=== PATIENT | female | born 1995 | race Asian ===

== ENCOUNTER 2016-10-30 05:00 | Emergency (ER) | payer BC, OTHER ==
[~2016-10-30] VITALS: Ht 162.6 cm; Wt 46.0 kg
[2016-10-30 05:04] VITALS: BP 116/66; PULSE 97; TEMP 36.6; O2SAT 97; Ht 162.6 cm; Wt 46.0 kg
[2016-10-30] MEDS ORDERED: SULFAMETHOXAZOLE/TRIMETHOPRIM DS 800/160MG TAB PO STA (05:17)
[2016-10-30] MEDS ORDERED: PHENAZOPYRIDINE HCL 200 MG TAB PO STA (05:17)
[2016-10-30] MEDS ORDERED: SULF800T23 PO (05:24)
[2016-10-30] MEDS ORDERED: PHEN-876 PO (05:24)
--- NOTE | 2016-10-30 05:25 | EMERGENCY ROOM VISIT NOTE ---
ED Visit Note First contact with patient: 05:06 Chief Complaint: UTI, Urinary Symptoms History of Present Illness: Patient is a 21-year-old female who presents to the emergency Department this morning for evaluation of her urinary symptoms. She reports that 3 hours prior to arrival she was awoken with suprapubic pain and burning with urination. She has had urinary frequency as well. She did take ibuprofen which did not provide much relief. She reports a history of about urinary tract infection the past. She denies a vaginal discharge or drainage. She denies any fevers or chills. She was nauseated secondary to the pain. The patient rates her current discomfort as 6/10. She denies any fevers, chills, upper abdominal pain, vomiting, hematemesis, hematochezia, or melena. She denies any tri hematuria. Medications: No current medications. Allergies: No known allergies. PMH: No pertinent past medical history. SHx: Patient is a 21 year old female [employer] student who lives with roommates. ROS: All pertinent positive and negative review of systems are appropriately documented in the History of Present Illness. Physical Exam: VITAL SIGNS - Vital signs and nursing notes were reviewed. GENERAL - 21-year-old female appearing her stated age who is in no acute distress. Communicates well with provider and answers questions appropriately. ABDOMEN - Abdominal contour flat and without pulsations or visible masses. BS normoactive all four quadrants. Mild tenderness to palpation appreciated in the suprapubic area. No guarding. No Rebound Tenderness. Negative Rovsing's. Negative Paiz's. No palpable masses, hepatosplenomegaly, or ascites noted. PSYCH - A&Ox3 and cooperates fully with examiner. Pt is very pleasant and interacts well with examiner. ED Course: Patient was seen and evaluated by myself. Urine dip and urinalysis were ordered. Urine dip was consistent with urinary tract infection as was the patient's symptoms. She has no fever. She has no flank pain concerning for worsening infection with complication. The patient was provided initial dose of Bactrim and Pyridium in the emergency department. She will replace a short course of the same. She'll follow-up with [facility] services from today's visit or return for any changing or worsening symptoms. Patient discharged home afebrile and in good condition. In the evaluation and treatment of this patient, the following differential diagnoses were considered: Kidney Stone, STI, Bladder Cancer, Amongst Others. Impression: Acute UTI, Dysuria Discharge Instructions: You have been treated in the Emergency Department for a Urinary Tract Infection (UTI). You have been prescribed Bactrim to be taken as prescribed. This is an antibiotic. All antibiotics have the potential to cause diarrhea. Stop this medication and contact a medical provider if you were to develop any significant adverse side effects including: wheezing, shortness of breath, passing out, vomiting, or a diffuse rash. Always take antibiotics as directed and COMPLETE the ENTIRE course regardless of the improvement of your symptoms. You have been prescribed Pyridium to be taken as prescribed. This medicine will help with the urinary symptoms that you have been experiencing. Be aware that Pyridium may turn your urine a red-orange or brown color. This effect is harmless. Drink plenty of water and stay well hydrated. As with any trip to the Emergency Department, you should follow-up with your Primary Care Provider from today's visit. Return to the emergency department if your symptoms persist despite treatment plan outlined above or if the following symptoms occur: increased fevers, chills , low back pain, nausea/vomiting, or blood in your urine. Current/Historical Medications Scheduled Phenazopyridine HCl (Pyridium), 200 MG PO TID Sulfa/Trimethoprim (Bactrim Ds 800MG/160MG), 1 TAB PO BID Allergies Coded Allergies: No Known Allergies (Unverified , 02/22/16) Vital Signs Date Time Temp Pulse Resp B/P Pulse Ox O2 Delivery O2 Flow Rate FiO2 10/30/16 05:04 36.6 97 18 116/66 97 Room Air Laboratory Results Test 10/30/16 05:10 Urine Color YELLOW Urine Appearance TURBID (CLEAR) Urine pH 5.5 (4.5-7.5) Urine Specific [place] 1.021 (1.000-1.030) Urine Protein 1+ (NEG) Urine Glucose (UA) NEG (NEG) Urine Ketones NEG (NEG) Urine Occult Blood 3+ (NEG) Urine Nitrite POS (NEG) Urine Bilirubin NEG (NEG) Urine Urobilinogen NEG (NEG) Urine Leukocyte Esterase LARGE (NEG) Urine WBC (Auto) >30 /hpf (0-5) Urine RBC (Auto) >30 /hpf (0-4) Urine Hyaline Casts (Auto) 5-10 /lpf (0-5) Urine Epithelial Cells (Auto) >30 /lpf (0-5) Urine Bacteria (Auto) 4+ (NEG) Urine Test NEG (NEG) Medications Administered Medications (Trade) Dose Ordered Sig/Shantel Route Start Time Stop Time Status Last Admin Dose Admin Trimethoprim/ Sulfamethoxazole (Sulfameth/ Trimeth Ds 800/ 160MG Home Pack) 1 homepack UD ONCE PO 10/30/16 05:30 10/30/16 05:31 DC 10/30/16 05:23 1 HOMEPACK Trimethoprim/ Sulfamethoxazole (Septra Ds 800/ 160MG Tab) 1 tab NOW STAT PO 10/30/16 05:17 10/30/16 05:19 DC 10/30/16 05:22 1 TAB Phenazopyridine HCl (Pyridium Tab) 200 mg NOW STAT PO 10/30/16 05:17 10/30/16 05:19 DC 10/30/16 05:23 200 MG Phenazopyridine HCl (Phenazopyridine HCl 200MG Home Pack) 1 homepack UD ONCE PO 10/30/16 05:30 10/30/16 05:31 DC 10/30/16 05:23 1 HOMEPACK Departure Information Impression Primary Impression: Urinary tract infection Qualified Codes: N30.00 - Acute cystitis without hematuria Additional Impression: Dysuria Dispostion Home / Self-Care Condition GOOD Prescriptions Phenazopyridine HCl (Pyridium) 200 Mg Tab 200 MG PO TID for 3 Days, #9 TAB Prov: Waqar Wileks PA-C 10/30/16 Sulfa/Trimethoprim (Bactrim Ds 800MG/160MG) Tab 1 TAB PO BID for 5 Days, #10 TAB Prov: Waqar Wilkes PA-C 10/30/16 Referrals No Doctor, Assigned (PCP) Patient Instructions ED UTI Cystitis Female, My [facility] Additional Instructions You have been treated in the Emergency Department for a Urinary Tract Infection (UTI). You have been prescribed Bactrim to be taken as prescribed. This is an antibiotic. All antibiotics have the potential to cause diarrhea. Stop this medication and contact a medical provider if you were to develop any significant adverse side effects including: wheezing, shortness of breath, passing out, vomiting, or a diffuse rash. Always take antibiotics as directed and COMPLETE the ENTIRE course regardless of the improvement of your symptoms. You have been prescribed Pyridium to be taken as prescribed. This medicine will help with the urinary symptoms that you have been experiencing. Be aware that Pyridium may turn your urine a red-orange or brown color. This effect is harmless. Drink plenty of water and stay well hydrated. As with any trip to the Emergency Department, you should follow-up with your Primary Care Provider from today's visit. Return to the emergency department if your symptoms persist despite treatment plan outlined above or if the following symptoms occur: increased fevers, chills , low back pain, nausea/vomiting, or blood in your urine.
[2016-10-30] MEDS ORDERED: SEPTRA DS HOME PACK 1 EA VIAL PO ONE (05:30)
[2016-10-30] MEDS ORDERED: PHENAZOPYRIDINE HOME PACK 200 MG VIAL PO ONE (05:30)
[2016-10-30 05:31] LABS: URINE APPEARANCE TURBID (CLEAR); URINE BILIRUBIN NEG (NEG); URINE COLOR YELLOW; URINE EPITHELIAL CELL AUTO >30 /lpf (0-5); URINE NITRITE POS (NEG); URINE PH 5.5 (4.5-7.5); URINE SPECIFIC GRAVITY 1.021 (1.000-1.030); UROBILINOGEN NEG (NEG); ZZUR CULT IF INDIC CLEAN CATCH YES
[2016-10-30 05:34] LABS: MANUAL MICROSCOPIC REQUIRED? NO; REVIEW REQ? NO
--- NOTE | 2016-11-01 12:30 | Pharmacy Progress Note ---
ED Pharmacist Culture FollowUp Date of Service: Nov 01, 2016. Patient was sent home with a prescription for Bactrim, which should cover the E. coli growing from the patient's urine culture.
== END 2016-10-30 05:34 | disposition home or self-care (01) ==
LOC: C.EDB 05:01 → C.EDA 05:34
DX: N39.0 Urinary tract infection, site not specified (principal)

== ENCOUNTER 2017-01-24 01:58 | Emergency (ER) | payer BC ==
[~2017-01-24] VITALS: Ht 162.6 cm; Wt 47.6 kg
[2017-01-24 02:00] VITALS: TEMP 36.9; Ht 162.6 cm; Wt 47.6 kg
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
[2017-01-24 03:35] VITALS: BP 128/86; PULSE 89; O2SAT 99
--- NOTE | 2017-01-24 07:18 | DIAGNOSTIC IMAGING REPORT ---
CT OF THE HEAD WITHOUT CONTRAST CLINICAL HISTORY: Head injury with loss of consciousness. COMPARISON STUDY: No previous studies for comparison. CT DOSE: 537.48 mGy.cm TECHNIQUE: Helical axial images of the head were obtained without IV contrast. Automated exposure control was utilized for the study. FINDINGS: No acute intracranial hemorrhage, midline shift or mass effect is present. Ventricular system is normal. Basilar cisterns are patent. There are no extra-axial collections. Otoole-white differentiation is maintained. There is no calvarial fracture. Visualized portions of the sinuses and mastoid air cells are clear. IMPRESSION: 1. No acute intracranial findings. 2. No calvarial fracture. Electronically signed by: Antwan Vale M.D. 01/24/2017 7:16 AM Dictated Date/Time: 01/24/2017 7:15 AM
== END 2017-01-24 03:35 | disposition home or self-care (01) ==
LOC: C.EDB 01:59
DX: S06.0X1A Concussion with loss of consciousness of 30 minutes or less, initial encounter (principal); W04.XXXA Fall while being carried or supported by other persons, initial encounter; Z87.440 Personal history of urinary (tract) infections

== ENCOUNTER 2017-11-19 06:29 | Emergency (ER) | payer BC, OTHER ==
[~2017-11-19] VITALS: Ht 165.1 cm; Wt 50.6 kg
[2017-11-19 06:33] VITALS: O2SAT 99; Ht 165.1 cm; Wt 50.6 kg
[2017-11-19 07:09] VITALS: BP 125/74; PULSE 100; TEMP 36.7; O2SAT 100
[2017-11-19] MEDS ORDERED: ONDANSETRON HOME PACK 4MG OD TAB PO ONE (11:00)
[2017-11-19] MEDS ORDERED: AZITHROMYCIN 250 MG TAB ONE (11:03)
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
[2017-11-19] MEDS ORDERED: LEVONORGESTREL (EMERGENCY OC) 1.5 MG TAB PO ONE (11:04)
[2017-11-19] MEDS ORDERED: CEFIXIME TAB 400 MG CAP PO ONE (11:11)
== END 2017-11-19 12:56 | disposition home or self-care (01) ==
LOC: C.EDB 06:30
DX: S40.012A Contusion of left shoulder, initial encounter (principal); T76.21XA Adult sexual abuse, suspected, initial encounter; T76.11XA Adult physical abuse, suspected, initial encounter; W22.8XXA Striking against or struck by other objects, initial encounter; M54.5 Low back pain; Z87.891 Personal history of nicotine dependence